=== PATIENT | male | born 1965 | race Caucasian/White ===

== ENCOUNTER 2018-05-03 11:16 | Emergency (ER) | payer MEDICARE ==
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
--- NOTE | 2018-05-03 12:27 | XRAY ---
Indication: Right eye pain and bruising following fall 5 days ago. Multiple contiguous axial images obtained through the head without contrast. Comparison: None Normal appearing brain parenchyma, ventricles, and bony calvarium. Visualized paranasal sinuses and mastoid air cells are clear. Small right frontal scalp hematoma. Impression: Small right frontal scalp hematoma. No acute fracture or acute intracranial abnormalities. CTDI 50.97
[2018-05-03 12:43] VITALS: BP 144/88; PULSE 66
--- NOTE | 2018-05-03 12:52 | XRAY ---
Indication: Short of breath and left rib pain following fall 5 days ago. Comparison: September 28, 2017. PA/lateral chest again hyperinflated and clear. Heart and mediastinal structures within normal limits. Bony thorax intact with mild degenerative changes. Impression: Stable nonacute chest.
--- NOTE | 2018-05-03 12:52 | XRAY ---
Indication: Pain following fall 5 days ago. Comparison: None 2 views of the left ribs demonstrates mild multilevel degenerative spondylosis and mild AC degenerative arthropathy. No other bony, articular, or soft tissue abnormalities.
[2018-05-03 13:35] VITALS: O2SAT 100
== END 2018-05-03 14:18 | disposition home or self-care (01) ==
LOC: ED 11:16
DX: S00.83XA Contusion of other part of head, initial encounter (principal); S20.212A Contusion of left front wall of thorax, initial encounter; W00.0XXA Fall on same level due to ice and snow, initial encounter; Y93.29 Activity, other involving ice and snow; S50.01XA Contusion of right elbow, initial encounter; S80.02XA Contusion of left knee, initial encounter; I10 Essential (primary) hypertension; J45.909 Unspecified asthma, uncomplicated; R51 Headache; J44.9 Chronic obstructive pulmonary disease, unspecified; Z79.899 Other long term (current) drug therapy; M79.7 Fibromyalgia; M19.90 Unspecified osteoarthritis, unspecified site; F41.8 Other specified anxiety disorders
CPT/HCPCS: 70450; 71046; 71100; 99283

== ENCOUNTER 2023-08-05 12:23 | Emergency (ER) | payer MEDICARE ==
[2023-08-05 12:34] VITALS: BP 134/80; TEMP 97.7
[2023-08-05 12:52] LABS: Absolute Neutrophil Ct (ANC) 4.22 x10^3/uL (1.4-6.9); Basophil (Absolute #) 0.07 x10^3/uL (0-0.4); Eosinophil % 0.7 % (0.00-5.0); Eosinophil (Absolute #) 0.05 x10^3/uL (0-0.5); IMMATURE GRAN # 0.03 x10^3u/L (0.00-0.03); IMMATURE GRAN % 0.4 % (0.00-0.4); Lymphocyte (Absolute #) 1.92 x10^3/uL (1.0-4.6); Lymphocytes % 28.2 % (24.0-44.0); Mean Cell Volume 68.6 fL (78-100); Mean Corpuscular Hemoglobin 19.6 pg (26-32); Mean Corpuscular Hgb Concent. 28.6 g/dL (32-36); Mean Platelet Volume 9.1 fL (7.5-11.0); Monocyte (Absolute #) 0.51 x10^3/uL (0.0-1.3); Monocytes % 7.5 % (0.0-12.0); Neutrophil % 62.2 % (36.0-66.0); Platelet Count 380 x10^3/uL (150-450); Red Blood Count 4.08 x10^6/uL (4.1-5.6); Red Cell Distribution Width 17.9 % (11.5-14.0); White Blood Count 6.8 x10^3/uL (4.0-10.5)
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
[2023-08-05 13:05] LABS: ALBUMIN 3.9 g/dL (3.5-5.0); ANION GAP 11.7 MEQ/L (5-15); BILIRUBIN,TOTAL 0.5 mg/dL (0.2-1.3); Calcium 8.5 mg/dL (8.4-10.2); Creatinine 1 0.86 mg/dL (0.66-1.25); EST GLOMERULAR FILTRATION RATE 102.3 ML/MIN; MAGNESIUM 1.9 mg/dL (1.6-2.3); Potassium 3.7 mmol/L (3.5-5.1); Total Protein 7.5 g/dL (6.3-8.2)
[2023-08-05] MEDS ORDERED: TORAdol 30 mg Injection ONE (13:27)
[2023-08-05] MEDS: TORAdol 30 mg Injection IM ONE (13:29)
[2023-08-05 14:02] VITALS: PULSE 78; RESP 18; O2SAT 98
[2023-08-05 14:47] LABS: Slide Review 1 YES
== END 2023-08-05 14:01 | disposition home or self-care (01) ==
LOC: ED 12:23
DX: I80.02 Phlebitis and thrombophlebitis of superficial vessels of left lower extremity (principal); D50.8 Other iron deficiency anemias; M79.662 Pain in left lower leg; I10 Essential (primary) hypertension; Z79.899 Other long term (current) drug therapy
CPT/HCPCS: 36415; 80053; 83735; 85025; 96372; 99283; J1885